=== PATIENT | male | born 1995 | race Hispanic/Latino ===

== ENCOUNTER 2023-04-01 05:27 | Emergency (ER) | payer SELFPAY ==
[~2023-04-01] VITALS: Ht 170.2 cm; Wt 72.0 kg
[2023-04-01] VITALS (7 sets, daily range): BP systolic 112–134; BP diastolic 83–99
== END 2023-04-01 07:08 | disposition home or self-care (01) | DRG 866 ==
LOC: ED 05:27
DX: B34.9 Viral infection, unspecified (principal); Z20.822 Contact with and (suspected) exposure to COVID-19